=== PATIENT | male | born 1985 | race Caucasian/White ===

== ENCOUNTER 2022-07-27 22:46 | Emergency (ER) | payer OTHER, SELFPAY ==
--- NOTE | 2022-07-27 22:45 | RT.EKG_ITS ---
APPROVED REPORT Exam: Resting ECG Reason for Exam: Chest Pain Syncope Patient Location: E HR:89 bpm ECG Measurements Heart Rate 89 AXIS MA 166 P 70 QRSd 94 QRS -73 QT 348 T 19 QTc 423 Conclusion Sinus rhythm...normal P axis, V-rate 60- 99 Probable left atrial enlargement...P >50mS, <-0.10mV V1 LAD, consider left anterior fascicular block...axis(240,-40), S>R II III aVF Physician: no stemi
--- NOTE | 2022-07-27 23:00 | DI.CT_ITS ---
Exam(s) CT THORAX ABD/PEL CTA EXAM: CT THORAX ABD/PEL CTA CLINICAL HISTORY: syncope, chest pain, sob, fhx of clots. TECHNIQUE: Imaging Protocol: Axial computed tomography images with coronal and sagittal reformatted images were created and reviewed CONTRAST MATERIAL: Intravenous: Omnipaque 350 Contrast volume:100 ml Oral: None COMPARISON: No exams were available for comparison FINDINGS: CHEST: PULMONARY ARTERIES: No intraluminal filling defects to suggest presence of acute pulmonary emboli. LUNGS: No infiltrates nor evidence of pulmonary infarction. No pleural effusions. No ominous nodule s.. MEDIASTINUM: There is no hilar nor mediastinal adenopathy. CARDIAC: Heart size is normal. There is no pericardial effusion. There is no shift of the intervent ricular septum. AORTA: Caliber of the thoracic aorta is within normal limits.There is no evidence of aortic dissectio n. ABDOMEN: There is no evidence of abdominal aortic aneurysm nor dissection.There is no aneurysmal dilatation of the common iliac arteries.The celiac and superior mesenteric arteries are patent.Inferior mesenteric artery is also patent. No evidence of stenosis in the renal arteries. There is no ascites. LIVER: There is a flash filling sub capsular lesion in the right hepatic lobe (images 53-55). Probab ly a hemangioma but difficult to assess accurately on this type of arterial phase study. GALLBLADDER/BILIARY: No obvious gallbladder pathology. CBD is not dilated. PANCREAS: No evidence of pancreatic mass nor dilatation of the pancreatic duct. SPLEEN: Spleen is not enlarged. There are no intrasplenic lesions. Splenic and portal veins are edwards nt. ADRENALS: There are no significant adrenal masses. KIDNEYS: Single small 4 millimeter benign cyst in the posterior cortex of the left kidney. Does not require further workup. No calculi nor hydronephrosis. No solid renal masses. ABDOMINAL AORTA: The abdominal aorta is not enlarged. LYMPH NODES: There is no retroperitoneal nor para-aortic adenopathy. No obvious mesenteric masses. ABDOMINAL WALL: No evidence of significant anterior abdominal wall hernia. GI: There is no evidence of bowel obstruction, free air, nor abscess. PELVIS: LYMPH NODES: There is no intrapelvic nor inguinal adenopathy. GI: No evidence of appendicitis.No evidence of sigmoid diverticulitis. URINARY BLADDER: No calculi nor masses evident REPRODUCTIVE: Prostate size normal. No obturator adenopathy. OSSEOUS: No significant osseous lesions. IMPRESSION: 1. No evidence of acute pulmonary emboli, pulmonary infarction, infiltrates, or pleural effusions. N o intrathoracic adenopathy. 2. No acute abnormality in the abdomen and pelvis evident. However, there is a flash filling subcaps ular lesion in the right hepatic lobe, difficult to assess accurately on this type of arterial phase study but probably a benign hemangioma. This can be further studied with contrast infused MRI using hemangioma protocol sequences. 3. Unremarkable appearing aorta. Unremarkable appearing aortoiliac segments. RADIATION DOSE DELIVERED: 860.82mGy.cm Total DLP DATA REPOSITORY: All CT scans at this facility are submitted to the National Radiology Data Registry (NRDR) Dose Index Registry (DIR) with the [employer] (ACR). RADIATION OPTIMIZATION: All CT scans at this facility use at least one of these dose optimization te chniques: automated exposure control; mA and/or kV adjustment per patient size (includes targeted exa ms where dose is matched to clinical indication); or iterative reconstruction.
[2022-07-27 23:02] VITALS: PULSE 88; RESP 16; TEMP 37.9; O2SAT 97
[2022-07-27 23:11] VITALS: BP 116/70; PULSE 88; RESP 12; RESP 18; O2SAT 96
[2022-07-27] MEDS: Normal Saline Flush 10 ML SYR IVP (23:11)
[2022-07-27] MEDS: Omnipaque 350 MG/ML 100 ML BTL IJ (23:11)
[2022-07-27] MEDS: Normal Saline - Diluent 50 ML VIAL IJ (23:12)
[2022-07-27 23:15] LABS: Abs Immature Grans 0.02 10^3/uL (0.0-0.06); Absolute Basophil Count 0.05 10^3/uL (0.0-0.2); Absolute Eosinophil Count 0.03 10^3/uL (0.0-0.7); Absolute Lymphocyte Count 1.84 10^3/uL (1.2-3.4); Absolute Neutrophil Count 5.87 10^3/uL (1.2-6.7); Basophils % 0.6; Eosinophils % 0.3; HCT 42.7 % (40.0-50.0); HGB 14.5 g/dL (13.5-17.5); Immature Grans % 0.2; Lymphocytes % 20.9; MCH 30.3 pg (27.0-33.0); MCV 89 fL (80-95); MPV 8.9 fL (8.0-11.0); Monocytes % 11.4; Neutrophils % 66.6; Platelet Count 188 10^3/uL (130-400); RBC 4.78 10^6/uL (4.36-5.78); RDW 12.5 % (11.8-14.1); RDW-SD 41.3 fL; WBC 8.81 10^3/uL (4.4-10.8)
[2022-07-27] MEDS: Normal Saline 1,000 ML 1000 ML IV (23:23)
[2022-07-27 23:39] LABS: ALT 210 U/L (16-63); AST 84 U/L (15-37); Alkaline Phosphatase 78 U/L (46-116); Anion Gap 6.1 mmol/L (3-11); BUN 16 mg/dL (7-18); CO2 27.9 mmol/L (21.0-32.0); Calcium 8.8 mg/dL (8.5-10.1); Chloride 101 mmol/L (98-107); Estimated GFR 100.66 (mL/min/1.73m2); Glucose 103 mg/dL (74-106); NT-proBNP 17 pg/mL (<300); Potassium 4.3 mmol/L (3.5-5.1); Sodium 135 mmol/L (136-145); TSH (W/Ref FT4) 1.18 uIU/mL (0.36-3.74); Total Protein 7.8 g/dL (6.4-8.2); Troponin I < 50 ng/L (<or=60)
[2022-07-27 23:51] LABS: COVID-19 PCR Negative (Negative); Influenza A PCR Negative (Negative); Influenza B PCR Negative (Negative); RSV PCR Negative (Negative)
[2022-07-27 23:52] LABS: Source Nasopharynx
--- NOTE | 2022-07-27 23:59 | W.ED.GENAD ---
Discharge Plan Disposition Patient Disposition: Home Discharge Details Clinical Impression: Strep throat, Lesion of liver, Acute dehydration Primary Care Provider: None,None ED Provider: Ronal Peralta Home Meds and New Rx's Prescriptions: No Action buprenorphine-naloxone [Suboxone] 8-2 mg Film 8 film 1XD Discharge Instructions Instructions: Dehydration (ED), Strep Throat (ED) Additional Instructions: At this time you reconsider strep throat. This is likely the cause of your fever and sore throat and myalgias. In addition to this syndrome work-up looking at your heart, thyroid function, kidney function is all normal. That being said there was a small lesion that was noted in the right lobe of your liver. Because of your hepatitis C it is important to get this reevaluated with ultrasound or MRI scan in the next 3 to 6 months. The shot that you were given years of treatment for your strep throat. Please take Tylenol and Motrin as needed for pain. If you notice any worsening of your symptoms, or any new symptoms such as vomiting, diarrhea, fever, chills, shortness of breath, chest pain, numbness, weakness, or fainting , please return immediately to the emergency department for reevaluation. Please follow up with your primary care provider as soon as possible for reassessment and reevaluation. As always, it was a pleasure participating in your medical care today. Medical Decision Making 36-year-old male with a past medical history of hepatitis C, who currently resides in a local intermediate presents today with complaint of syncope sore throat chest pain. Patient states that earlier today he developed a sore throat at 6 AM, and also had associated pain in his shoulders, achiness throughout, mild headache in his temporal lobes, mild chest pain as well. He denies any cough. Later in the day he did have a syncopal episode. He did not hit his head. He was watched throughout the day at the intermediate, and starting to feel better. However later this evening the medical cagle recommended evaluation in the ED. Patient has no complaints of posterior neck pain. He denies any vomiting or diarrhea. No other complaints at this time. No other modifying factors. Exam demonstrates minimal erythema in the posterior oropharynx. No nuchal rigidity. No abdominal pain or chest pain at this time. Lungs are clear. Normal neurologic assessment. Symptoms inconsistent with meningitis. Uncertain as to the cause of the patient's syncope. Cardiac etiology seems unlikely. EKG is benign. Intervals normal. No evidence of epsilon wave, delta wave, or Brugada syndrome. We will evaluate for pulmonary embolism, will give Toradol, and test for strep, evaluate for infectious etiology, monitor closely and reassess. [address] imaging negative for acute process. There is a small lesion in the liver, with the patient's history of hepatitis C I have recommended outpatient follow-up for him for further nonemergent but urgent assessment. Patient understands this. Remainder the laboratory work-up including cardiac work-up, proBNP, thyroid function is all normal. Urinalysis shows no evidence of infection. Patient strep screen is positive. COVID flu and RSV is negative. We will give 1,200,000 units of penicillin IM for treatment of strep. Fever has resolved. Suspect symptoms/syncope today was a result of dehydration and mild illness. Discussed red flags for which to return. Patient shows no evidence of peritonsillar abscess, airway compromise or other significant concerning abnormality at this time. Patient has been treated for strep. I have extensively reviewed the treatment plan and discharge instructions with the patient. I have addressed all patient concerns at this time. The patient was made aware of what symptoms to monitor for that would warrant a return to the emergency department. Discussed the plan with the patient, they demonstrate verbal understanding and agreement with our assessment and plan at this time. The documentation in this chart was dictated using [employer] dictation software. Please excuse any dictation errors. FINDINGS: VASCULATURE: Pulmonary arteries: Normal. No pulmonary emboli. Aorta: No aortic aneurysm. No aortic dissection. Celiac trunk and mesenteric arteries: No occlusion or significant stenosis. Renal arteries: No occlusion or significant stenosis. Right iliac arteries: No occlusion or significant stenosis. Left iliac arteries: No occlusion or significant stenosis. CHEST: Lungs: Unremarkable. No consolidation. No masses. Pleural spaces: Unremarkable. No pneumothorax. No pleural effusion. Heart: Unremarkable. No cardiomegaly. No pericardial effusion. ABDOMEN AND PELVIS: Liver: 10 mm enhancing lesion in the right lobe of the liver (axial image 53) favored to represent a small hemangioma. Liver is otherwise unremarkable. Gallbladder and bile ducts: Unremarkable. No calcified stones. No ductal dilation. Pancreas: Unremarkable. No mass. No ductal dilation. Spleen: Unremarkable. No splenomegaly. Adrenal glands: Unremarkable. No mass. Kidneys and ureters: Unremarkable. No solid mass. No hydronephrosis. Stomach and bowel: Unremarkable. No obstruction. No mucosal thickening. Appendix: No evidence of appendicitis. Intraperitoneal space: Unremarkable. No free air. No significant fluid collection. Urinary bladder: Unremarkable. No mass. Reproductive: Unremarkable as visualized. Lymph nodes: Unremarkable. No enlarged lymph nodes. Bones/joints: Unremarkable. No acute fracture. Soft tissues: Unremarkable. IMPRESSION: No acute abnormality evident Flash filling 10 mm lesion in the right lobe of the liver, likely small hemangioma. In a low-risk patient, this is most likely to be benign and no further follow-up is recommended. In a high-risk patient, further evaluation with non-emergent liver MRI is recommended. (Reference: Lindsey) References: Lindsey CASAREZ, et al. Management of Incidental Liver Lesions on CT: A White Paper of the ACR Incidental Findings Committee. J Am Itz Radiol. 2017;14(11):3019-3675. Thank you for allowing us to participate in the care of your patient. Dictated and Authenticated by: Ruddy Richardson MD 07/28/2022 12:31 AM Eastern Time ([place] & [place]) HPI General Date/Time Provider Initiated Documentation: 07/27/22 22:49. HPI Narrative: 36-year-old male with a past medical history of hepatitis C, who currently resides in a local intermediate presents today with complaint of syncope sore throat chest pain. Patient states that earlier today he developed a sore throat at 6 AM, and also had associated pain in his shoulders, achiness throughout, mild headache in his temporal lobes, mild chest pain as well. He denies any cough. Later in the day he did have a syncopal episode. He did not hit his head. He was watched throughout the day at the intermediate, and starting to feel better. However later this evening the medical cagle recommended evaluation in the ED. Patient has no complaints of posterior neck pain. He denies any vomiting or diarrhea. No other complaints at this time. No other modifying factors. Related Data Home Medications Medication Instructions Recorded Confirmed buprenorphine 8 mg-naloxone 2 mg 8 film 1XD 07/27/22 07/27/22 sublingual film (Suboxone) Allergies Allergy/AdvReac Type Severity Reaction Status Date / Time No Known Allergies Allergy Unverified 07/27/22 23:10 General Stated Complaint: Dizzy/Sync DINORAH: 3 Review of Systems All systems reviewed & are unremarkable except as noted in HPI and below PFSH All Active Problems (Updated 07/28/22 @ 00:44 by Ronal Peralta DO) Strep throat (Acute) Lesion of liver (Acute) Acute dehydration (Acute) Medical History Hepatitis Social History Smoking/Tobacco Use Status: Former Tobacco Use Smoking risk assessment performed?: Yes Alcohol Intake: former Substance use type: former substance user Additional Social history: currently incarcerated Exam Narrative Exam Narrative: 1.Const: Well-nourished, Well-developed, appearing stated age 2.Eyes: PERRL, no conjunctival injection, and symmetrical lids. 3.ENT: Atraumatic external nose and ears. Moist MM. Neck: Symmetric, trachea midline, No thyromegaly. Mild tonsillar exudates on the right. Minimal tonsillar enlargement. Minimal erythema. Patient demonstrates good movement of cervical neck. There is no nuchal rigidity, no nuchal tenderness. Patient is able to flex the neck without any difficulty or significant pain. Negative Kernig's and Brudzinski sign. 4.CVS: +S1/S2, No murmurs or gallops. Peripheral pulses 2+ and equal in all extremities. Brisk capillary refill in all extremities. 5.RESP: Unlabored respiratory effort. Clear to auscultation bilaterally. No wheezes rales or rhonchi 6.GI: Soft, Nontender/Nondistended, No hepatosplenomegaly. No guarding or rebound. 7.MSK: Normocephalic/Atraumatic, Extremities w/o deformity or ttp No cyanosis or clubbing, Normal movement of all extremities 8.Skin: Warm, Dry. No rashes or lesions. 9.Neuro: manager sound II-XII grossly intact. Sensation grossly intact, no focal neurologic deficits. 10.Psych: (AAO) x3. Appropriate mood and affect Course Vital Signs Vital signs: Vital Signs Temperature 37.9 C H 07/27/22 23:02 Pulse 88 07/27/22 23:02 Respiratory Rate 16 07/27/22 23:02 Pulse Oximetry 97 07/27/22 23:02 Temperature 37.9 C H 07/27/22 23:02 Temperature Source Oral 07/27/22 23:02 Pulse 88 07/27/22 23:11 Pulse Rhythm Regular 07/27/22 23:11 Pulse Strength Normal 07/27/22 23:11 Respiratory Rate 12 07/27/22 23:11 Respiratory Effort Normal, Non-Labored 07/27/22 23:11 Respiratory Depth Normal 07/27/22 23:11 Respiratory Pattern Normal 07/27/22 23:11 Blood Pressure 116/70 07/27/22 23:11 Blood Pressure Mean 85 07/27/22 23:11 Blood Pressure Position Sitting 07/27/22 23:11 Pulse Oximetry 96 07/27/22 23:11 Oxygen Delivery Method Room Air 07/27/22 23:11 Oxygen Flow Rate 0 07/27/22 23:11 Pain Level 9 07/27/22 23:11 Comment c/o head pain 07/27/22 23:02 Lab/Test Results Lab/Test Results: Laboratory Tests Range/Units 07/27/22 07/27/22 07/27/22 23:00 23:00 23:00 WBC (4.4-10.8) 10^3/uL 8.81 RBC (4.36-5.78) 10^6/uL 4.78 Hgb (13.5-17.5) g/dL 14.5 Hct (40.0-50.0) % 42.7 MCV (80-95) fL 89 MCH (27.0-33.0) pg 30.3 MCHC (32.0-36.0) % 34.0 RDW (11.8-14.1) % 12.5 Plt Count (130-400) 10^3/uL 188 MPV (8.0-11.0) fL 8.9 Immature Gran % 0.2 Neutrophils % 66.6 Lymphocytes % 20.9 Monocytes % 11.4 Eosinophils % 0.3 Basophils % 0.6 Nucleated RBC % (0.0-0.3) % 0.0 Absolute Neutrophils (1.2-6.7) 10^3/uL 5.87 Absolute Lymphocytes (1.2-3.4) 10^3/uL 1.84 Absolute Monocytes (0.1-0.8) 10^3/uL 1.00 H Absolute Eosinophils (0.0-0.7) 10^3/uL 0.03 Absolute Basophils (0.0-0.2) 10^3/uL 0.05 Sodium (136-145) mmol/L 135 L Potassium (3.5-5.1) mmol/L 4.3 Chloride (98-107) mmol/L 101 Carbon Dioxide (21.0-32.0) mmol/L 27.9 Anion Gap (3-11) mmol/L 6.1 BUN (7-18) mg/dL 16 Creatinine (0.70-1.30) mg/dL 1.0 Est GFR (CKD-EPI 2020) (mL/min/1.73m2) 100.66 Glucose (74-106) mg/dL 103 Calcium (8.5-10.1) mg/dL 8.8 Total Bilirubin (0.2-1.0) mg/dL 1.0 AST (15-37) U/L 84 H ALT (16-63) U/L 210 H Alkaline Phosphatase (46-116) U/L 78 Troponin I (<or=60) ng/L < 50 NT-Pro-B Natriuret Pep (<300) pg/mL 17 Total Protein (6.4-8.2) g/dL 7.8 Albumin (3.4-5.0) g/dL 4.0 TSH (0.36-3.74) uIU/mL 1.18 COVID-19 Source Nasopharynx SARS-CoV-2 (PCR) (Negative) Negative Influenza Type A (PCR) (Negative) Negative Influenza Type B (PCR) (Negative) Negative RSV (PCR) (Negative) Negative
[2022-07-28 00:02] LABS: Bilirubin Negative (Negative); Blood Trace-lysed (Negative); Clarity Clear (Clear); Glucose Negative (Negative); Ketones Negative (Negative); Leukocyte Esterase Negative (Negative); Nitrite Negative (Negative); Specific Gravity <= 1.005 (1.005-1.025); Urobilinogen 0.2 mg/dL (Up to 0.2); pH 5.5 (5-8)
[2022-07-28] MEDS: ACETAMINOPHEN 1,000 MG/100 ML BTL 400 MG IVPB (00:16)
[2022-07-28 00:17] LABS: Bacteria Rare HPF (Negative); C & S Indicated? No; Crystals Negative HPF (Negative); Epithelial Cells Negative HPF (Negative); Mucus Negative (Negative); RBC 0-2 HPF (0-2); WBC Negative HPF (0-5)
[2022-07-28] MEDS: Ketorolac 15 MG/ML VIAL IVP (00:17)
--- NOTE | 2022-07-28 00:31 | DI.VRAD_ITS ---
PROCEDURE INFORMATION: Exam: CTA Chest With Contrast CTA Abdomen and Pelvis With Contrast Exam date and time: 07/27/2022 11:54 PM Age: 36 years old Clinical indication: Chest pressure; Abdominal pain; Other: Abd pain; Patient HX: Syncope, chest pain, SOB, fhx of clots TECHNIQUE: Imaging protocol: Computed tomographic angiography of the chest with contrast. Exam focused on the arteries. Computed tomographic angiography of the abdomen and pelvis with contrast. Exam focused on the arteries. 3D rendering (Not supervised by radiologist): MIP and/or 3D reconstructed images were created by the technologist. Radiation optimization: All CT scans at this facility use at least one of these dose optimization techniques: automated exposure control; mA and/or kV adjustment per patient size (includes targeted exams where dose is matched to clinical indication); or iterative reconstruction. Contrast material: OMNIPAQUE 350; Contrast volume: 100 ml; Contrast route: INTRAVENOUS (IV); COMPARISON: No relevant prior studies available. FINDINGS: VASCULATURE: Pulmonary arteries: Normal. No pulmonary emboli. Aorta: No aortic aneurysm. No aortic dissection. Celiac trunk and mesenteric arteries: No occlusion or significant stenosis. Renal arteries: No occlusion or significant stenosis. Right iliac arteries: No occlusion or significant stenosis. Left iliac arteries: No occlusion or significant stenosis. CHEST: Lungs: Unremarkable. No consolidation. No masses. Pleural spaces: Unremarkable. No pneumothorax. No pleural effusion. Heart: Unremarkable. No cardiomegaly. No pericardial effusion. ABDOMEN AND PELVIS: Liver: 10 mm enhancing lesion in the right lobe of the liver (axial image 53) favored to represent a small hemangioma. Liver is otherwise unremarkable. Gallbladder and bile ducts: Unremarkable. No calcified stones. No ductal dilation. Pancreas: Unremarkable. No mass. No ductal dilation. Spleen: Unremarkable. No splenomegaly. Adrenal glands: Unremarkable. No mass. Kidneys and ureters: Unremarkable. No solid mass. No hydronephrosis. Stomach and bowel: Unremarkable. No obstruction. No mucosal thickening. Appendix: No evidence of appendicitis. Intraperitoneal space: Unremarkable. No free air. No significant fluid collection. Urinary bladder: Unremarkable. No mass. Reproductive: Unremarkable as visualized. Lymph nodes: Unremarkable. No enlarged lymph nodes. Bones/joints: Unremarkable. No acute fracture. Soft tissues: Unremarkable. IMPRESSION: No acute abnormality evident Flash filling 10 mm lesion in the right lobe of the liver, likely small hemangioma. In a low-risk patient, this is most likely to be benign and no further follow-up is recommended. In a high-risk patient, further evaluation with non-emergent liver MRI is recommended. (Reference: Lindsey) References: Lindsey CASAREZ, et al. Management of Incidental Liver Lesions on CT: A White Paper of the ACR Incidental Findings Committee. J Am Itz Radiol. 2017;14(11):4511-1600. Dictated and Authenticated by: Ruddy Richardson MD. Ordering:ADELIA Villeda MD
[2022-07-28 01:09] VITALS: BP 121/76; PULSE 87; RESP 16; TEMP 37.1
== END 2022-07-28 01:11 | disposition home or self-care (01) ==
PROVIDERS: Emergency Provider Student in an Organized Health Care Education/Training Program
DX: J02.0 Streptococcal pharyngitis (principal); K76.9 Liver disease, unspecified; E86.0 Dehydration; R07.9 Chest pain, unspecified
CPT/HCPCS: 36415; 71275; 80053; 87637; 87880; 93005; 96361; 96365; 96372; 96375; 99285; 74174; 81003; 81015; 83880; 84443; 84484; 85025; 93010; 99284; J0131; J0561; J1885; J3490